=== PATIENT | female | born 1985 | race Caucasian/White ===

== ENCOUNTER 2018-07-07 13:41 | Emergency (ER) | payer BC ==
[2018-07-07] MEDS ORDERED: Phenergan 25 MG INJ IV ONE ×2 (14:21→16:25)
[2018-07-07] MEDS ORDERED: Sodium Chloride 0.9% 1000 ML 1,000 ML IV STA ×2 (14:22→16:25)
[2018-07-07] MEDS ORDERED: Phenergan 25 MG INJ ONE ×2 (14:25→16:27)
[2018-07-07] MEDS ORDERED: Sodium Chloride 0.9% 1000 ML 1,000 ML ONE ×2 (14:25→16:27)
--- NOTE | 2018-07-07 14:40 | ERPHSYRPT ---
- History of Present Illness Time Seen by Provider: 07/07/18 14:35 Historian: patient, family Exam Limitations: no limitations Patient Subjective Stated Complaint: pt here for n/v/d that started this morning , her is also ill and she is afraid she has what he has Triage Nursing Assessment: pt walked in, resp easy, skin w/d/p. states she has vomited x2 and had 2 loose stools today, no fever, is 18 weeks Physician History: The patient is a 32-year-old at 18 weeks 1 day female with her complaining of nausea and vomiting that began this morning. She has some mild epigastric pain. Her was also ill yesterday evening with nausea, vomiting, and diarrhea. She denies lightheadedness. She denies vaginal bleeding or discharge. Timing/Duration: today, constant, gradual onset Activities at Onset: none Quality: cramping Abdominal Pain Onset Location: epigastric Pain Radiation: no radiation Severity of Pain-Max: mild Severity of Pain-Current: mild Modifying Factors: Improves With: vomiting Associated Symptoms: nausea, vomiting, No diarrhea Previous symptoms: no prior history Allergies/Adverse Reactions: azithromycin [From Zithromax Z-Kee] Allergy (Verified 07/07/18 14:02) Home Medications: Vits W-Ca,Fe,FA(<1Mg) [] 1 each PO DAILY 02/13/16 [History] Hx Tetanus, Diphtheria Vaccination/Date Given: Yes Hx Influenza Vaccination/Date Given: Yes Hx Pneumococcal Vaccination/Date Given: No Immunizations Up to Date: Yes - Review of Systems Constitutional: No Fever, No Chills Eyes: No Symptoms Ears, Nose, & Throat: No Symptoms Respiratory: No Cough, No Dyspnea Cardiac: No Chest Pain, No Edema, No Syncope Abdominal/Gastrointestinal: Abdominal Pain, Nausea, Vomiting Genitourinary Symptoms: No Dysuria Musculoskeletal: No Back Pain, No Neck Pain Skin: No Rash Neurological: No Dizziness, No Focal Weakness, No Sensory Changes Psychological: No Symptoms Endocrine: No Symptoms Hematologic/Lymphatic: No Symptoms Immunological/Allergic: No Symptoms All Other Systems: Reviewed and Negative - Past Medical History Pertinent Past Medical History: No - Past Surgical History Past Surgical History: Yes Other Surgical History: tear duck - Social History Smoking Status: Never smoker Exposure to second hand smoke: No Drug Use: none Patient Lives Alone: No - Female History Hx Now: Yes Expected Date of Delivery: 12/07/18 - Nursing Vital Signs Nursing Vital Signs: Initial Vital Signs Temperature 97.8 F 07/07/18 13:57 Pulse Rate 104 H 07/07/18 13:57 Respiratory Rate 16 07/07/18 13:57 Blood Pressure 123/77 07/07/18 13:57 O2 Sat by Pulse Oximetry 100 07/07/18 13:57 Pain Scale Pain Intensity 2 - Physical Exam General Appearance: no apparent distress, alert Eye Exam: PERRL/EOMI, eyes nml inspection Ears, Nose, Throat Exam: normal ENT inspection, pharynx normal, moist mucous membranes Neck Exam: normal inspection, non-tender, supple, full range of motion Respiratory Exam: normal breath sounds, lungs clear, No respiratory distress Cardiovascular Exam: normal heart sounds, tachycardia Gastrointestinal/Abdomen Exam: soft, No tenderness, No mass Pelvic Exam: not done Rectal Exam: not done Back Exam: normal inspection, normal range of motion, No CVA tenderness, No vertebral tenderness Extremity Exam: normal inspection, normal range of motion, pelvis stable Neurologic Exam: alert, oriented x 3, cooperative, normal mood/affect, nml cerebellar function, sensation nml, No motor deficits Skin Exam: normal color, warm, dry SpO2 Interpretation: normal SpO2: 100 Oxygen Delivery: Room Air Ordered Tests: Active Orders 24 hr Category Date Time Status IV Insertion STAT Care 07/07/18 14:40 Active BMP Stat Lab 07/07/18 15:00 Completed CBC W DIFF Stat Lab 07/07/18 15:00 Completed CULTURE,URINE Stat Lab 07/07/18 15:58 Received LIPASE Stat Lab 07/07/18 15:00 Completed Lactic Acid Stat Lab 07/07/18 15:06 Completed UA W/RFX UR CULTURE Stat Lab 07/07/18 15:58 Completed Medication Summary Discontinued Medications Generic Name Dose Route Start Last Admin Trade Name Freq PRN Reason Stop Dose Admin Sodium Chloride 1,000 mls @ 999 mls/hr 07/07/18 14:22 07/07/18 15:34 Sodium Chloride 0.9% 1000 Ml IV 07/07/18 15:22 Infused .Q1H1M STA Infusion Sodium Chloride Confirm 07/07/18 14:25 Sodium Chloride 0.9% 1000 Ml Administered 07/07/18 14:26 Dose 1,000 mls @ ud .ROUTE .STK-MED ONE Sodium Chloride 1,000 mls @ 999 mls/hr 07/07/18 16:25 07/07/18 17:46 Sodium Chloride 0.9% 1000 Ml IV 07/07/18 17:25 Infused .Q1H1M STA Infusion Sodium Chloride Confirm 07/07/18 16:27 Sodium Chloride 0.9% 1000 Ml Administered 07/07/18 16:28 Dose 1,000 mls @ ud .ROUTE .STK-MED ONE Promethazine HCl 12.5 mg 07/07/18 14:21 07/07/18 14:28 Phenergan 25 Mg Inj IV 07/07/18 14:22 12.5 mg STAT ONE Administration Promethazine HCl Confirm 07/07/18 14:25 Phenergan 25 Mg Inj Administered 07/07/18 14:26 Dose 25 mg .ROUTE .STK-MED ONE Promethazine HCl 12.5 mg 07/07/18 16:25 07/07/18 16:29 Phenergan 25 Mg Inj IV 07/07/18 16:26 12.5 mg STAT ONE Administration Promethazine HCl Confirm 07/07/18 16:27 Phenergan 25 Mg Inj Administered 07/07/18 16:28 Dose 25 mg .ROUTE .STK-MED ONE Lab/Rad Data: Laboratory Result Diagrams 07/07/18 15:00 07/07/18 15:00 Laboratory Results 07/07/18 07/07/18 07/07/18 Range/Units 15:58 15:06 15:00 WBC (4.0-10.5) K/mm3 RBC (4.1-5.4) M/mm3 Hgb (12.0-16.0) gm/dl Hct (35-47) % MCV (78-100) fl MCH (26-32) pg MCHC (32-36) g/dl RDW (11.5-14.0) % Plt Count (150-450) K/mm3 MPV (6-9.5) fl Gran % (36.0-66.0) % Eos # (Auto) (0-0.5) Absolute Lymphs (auto) (1.0-4.6) Absolute Monos (auto) (0.0-1.3) Lymphocytes % (24.0-44.0) % Monocytes % (0.0-12.0) % Eosinophils % (0.00-5.0) % Basophils % (0.0-0.4) % Absolute Granulocytes (1.4-6.9) Basophils # (0-0.4) Sodium 137 (137-145) mmol/L Potassium 3.8 (3.5-5.1) mmol/L Chloride 106 (98-107) mmol/L Carbon Dioxide 22 (22-30) mmol/L Anion Gap 12.2 (5-15) MEQ/L BUN 9 (7-17) mg/dL Creatinine 0.42 L (0.52-1.04) mg/dL Estimated GFR > 60.0 ML/MIN Glucose 98 (74-106) mg/dL Lactic Acid 0.7 (0.4-2.0) Calcium 8.3 L (8.4-10.2) mg/dL Lipase 43 (23-300) U/L Urine Color YELLOW (YELLOW) Urine Appearance CLOUDY (CLEAR) Urine pH 5.0 (5-6) Ur Specific Dowell 1.025 (1.005-1.025) Urine Protein NEGATIVE (Negative) Urine Ketones MODERATE (NEGATIVE) Urine Blood NEGATIVE (0-5) Mario/ul Urine Nitrite NEGATIVE (NEGATIVE) Urine Bilirubin NEGATIVE (NEGATIVE) Urine Urobilinogen NEGATIVE (0-1) mg/dL Ur Leukocyte Esterase SMALL (NEGATIVE) Urine WBC (Auto) 6-10 (0-5) /HPF Urine RBC (Auto) 0-2 (0-2) /HPF U Epithel Cells (Auto) RARE (FEW) /HPF Urine Bacteria (Auto) RARE (NEGATIVE) /HPF Urine Mucus (Auto) SLIGHT (NEGATIVE) /HPF Urine Culture Reflexed YES (NO) Urine Glucose NEGATIVE (NEGATIVE) mg/dL 07/07/18 Range/Units 15:00 WBC 9.8 (4.0-10.5) K/mm3 RBC 3.90 L (4.1-5.4) M/mm3 Hgb 12.7 (12.0-16.0) gm/dl Hct 37.0 (35-47) % MCV 94.9 (78-100) fl MCH 32.5 H (26-32) pg MCHC 34.3 (32-36) g/dl RDW 13.7 (11.5-14.0) % Plt Count 165 (150-450) K/mm3 MPV 11.1 H (6-9.5) fl Gran % 86.7 H (36.0-66.0) % Eos # (Auto) 0.04 (0-0.5) Absolute Lymphs (auto) 0.69 L (1.0-4.6) Absolute Monos (auto) 0.57 (0.0-1.3) Lymphocytes % 7.0 L (24.0-44.0) % Monocytes % 5.8 (0.0-12.0) % Eosinophils % 0.4 (0.00-5.0) % Basophils % 0.1 (0.0-0.4) % Absolute Granulocytes 8.50 H (1.4-6.9) Basophils # 0.01 (0-0.4) Sodium (137-145) mmol/L Potassium (3.5-5.1) mmol/L Chloride (98-107) mmol/L Carbon Dioxide (22-30) mmol/L Anion Gap (5-15) MEQ/L BUN (7-17) mg/dL Creatinine (0.52-1.04) mg/dL Estimated GFR ML/MIN Glucose (74-106) mg/dL Lactic Acid (0.4-2.0) Calcium (8.4-10.2) mg/dL Lipase (23-300) U/L Urine Color (YELLOW) Urine Appearance (CLEAR) Urine pH (5-6) Ur Specific Dowell (1.005-1.025) Urine Protein (Negative) Urine Ketones (NEGATIVE) Urine Blood (0-5) Mario/ul Urine Nitrite (NEGATIVE) Urine Bilirubin (NEGATIVE) Urine Urobilinogen (0-1) mg/dL Ur Leukocyte Esterase (NEGATIVE) Urine WBC (Auto) (0-5) /HPF Urine RBC (Auto) (0-2) /HPF U Epithel Cells (Auto) (FEW) /HPF Urine Bacteria (Auto) (NEGATIVE) /HPF Urine Mucus (Auto) (NEGATIVE) /HPF Urine Culture Reflexed (NO) Urine Glucose (NEGATIVE) mg/dL - Progress Progress: improved Progress Note: 07/07/18 14:40 FHT at 160 bpm 07/07/18 16:24 Feeling better but wants more IV fluids. 07/07/18 17:49 after phenergan 12.5 mg times 2 and 2L NS IV, pt feels better. Counseled pt/family regarding: lab results, diagnosis, need for follow-up - Departure Time of Disposition: 17:50 Departure Disposition: Home Clinical Impression: Gastroenteritis Condition: Stable Critical Care Time: No Referrals: KAYLEE PINEDA MD [Primary Care Provider] - Additional Instructions: You have vomiting and diarrhea (gastroenteritis). You were given Phenergan 12.5 mg 2 times and normal saline fluid 2 L by IV in the ER. You may take Phenergan 25 mg orally later this evening if needed. Follow-up with your primary medical doctor tomorrow.
[2018-07-07 15:25] LABS: BASOPHIL % 0.1 % (0.0-0.4); Basophil (Absolute #) 0.01 (0-0.4); Eosinophil % 0.4 % (0.00-5.0); Eosinophil (Absolute #) 0.04 (0-0.5); Granulocytes % 86.7 % (36.0-66.0); Hemoglobin 12.7 gm/dl (12.0-16.0); Lymphocyte (Absolute #) 0.69 (1.0-4.6); Mean Cell Volume 94.9 fl (78-100); Mean Corpuscular Hgb Concent. 34.3 g/dl (32-36); Mean Platelet Volume 11.1 fl (6-9.5); Monocyte (Absolute #) 0.57 (0.0-1.3); Monocytes % 5.8 % (0.0-12.0); Platelet Count 165 K/mm3 (150-450); Red Cell Distribution Width 13.7 % (11.5-14.0); White Blood Count 9.8 K/mm3 (4.0-10.5)
[2018-07-07 15:27] LABS: Mean Corpuscular Hemoglobin 32.5 pg (26-32)
[2018-07-07 15:36] LABS: ANION GAP 12.2 MEQ/L (5-15); BLOOD UREA NITROGEN 9 mg/dL (7-17); CHLORIDE 106 mmol/L (98-107); Calcium 8.3 mg/dL (8.4-10.2); Carbon Dioxide 22 mmol/L (22-30); Creatinine 1 0.42 mg/dL (0.52-1.04); Glucose 98 mg/dL (74-106); LIPASE 43 U/L (23-300); Potassium 3.8 mmol/L (3.5-5.1); SODIUM 137 mmol/L (137-145)
[2018-07-07 16:16] LABS: Appearance CLOUDY (CLEAR); Bilirubin NEGATIVE (NEGATIVE); Blood NEGATIVE Ery/ul (0-5); Glucose NEGATIVE (NEGATIVE); Ketones MODERATE (NEGATIVE); Leukocyte Esterase SMALL (NEGATIVE); Nitrite NEGATIVE (NEGATIVE); Protein,Urine Dip NEGATIVE (Negative); Specific Gravity 1.025 (1.005-1.025); Urobilinogen NEGATIVE mg/dL (0-1)
[2018-07-07 17:46] VITALS: BP 112/66; PULSE 80
[2018-07-07] MEDS ORDERED: PHENERGAN 25 MG ONE (17:50)
[2018-07-07 17:52] VITALS: O2SAT 100
[2018-07-07] MEDS ORDERED: PHENERGAN 25 MG PO PRN (17:52)
== END 2018-07-07 18:04 | disposition home or self-care (01) ==
LOC: ED 13:41
DX: O26.892 Other specified pregnancy related conditions, second trimester (principal); Z3A.18 18 weeks gestation of pregnancy; K52.9 Noninfective gastroenteritis and colitis, unspecified
CPT/HCPCS: 36000; 36415; 80048; 81001; 83605; 83690; 85025; 87086; 96360; 96374; 96376; 99284; J2550; A9270-GY